=== PATIENT | male | born 1990 | race Caucasian/White ===

== ENCOUNTER 2018-04-12 15:01 | Emergency (ER) | payer OTHER ==
[2018-04-12 16:13] LABS: KETONE, URINE AUTO RFX NEGATIVE (NEGATIVE); LEUKOCYTE ESTERASE UR AUTO RFX NEGATIVE (NEGATIVE); MUCUS, URINE RFX SMALL (NEGATIVE); NITRITE, URINE AUTO RFX NEGATIVE (NEGATIVE); RBC, URINE AUTO RFX 0 /HPF (0-3); SPECIFIC GRAVITY UR AUTO RFX 1.024 (1.002-1.035); SQUAM EPITHELIAL CELL UR AURFX 0 /HPF (0-6); WBC, URINE AUTO RFX 0 /HPF (0-3)
[2018-04-12 17:54] LABS: CHLAMYDIA DNA AMPLIFICATION NEGATIVE (NEGATIVE); GC DNA AMPLIFICATION NEGATIVE (NEGATIVE)
== END 2018-04-12 17:34 | disposition home or self-care (01) ==
LOC: M ED 15:01
DX: I86.1 Scrotal varices (principal); N50.3 Cyst of epididymis
CPT/HCPCS: 76870

== ENCOUNTER → 2019-05-10 | Outpatient (CLI) | payer OTHER ==
[~2019-05-10] MED LIST: ISOVUE-370 76% 100ML VIAL (Q9967) As Ordered ONE; NAPR-885 PO
--- NOTE | 2019-05-11 12:27 | REP ---
Thoracic outlet syndrome CT angiography: The IV contrast bolus is split in two. Injection is performed into the right upper extremity veins, as the more symptomatic side is on the left. Scanning is initially performed with the right arm over head and left arm at side during the arterial phase of enhancement and repeated after 90 seconds during the venous phase of enhancement. Following this scanning is repeated with the left arm over head and right arm at side during the arterial phase of enhancement and repeated during the venous phase of enhancement. Axial images are acquired and sagittal and coronal reformats are performed. With the left arm over head, there is compression of the left subclavian vein by the left clavicle. There is is no left subclavian vein impression compression with the left arm at side. There is no left subclavian artery compression with the arm over head or the arm at side. There is no compression of the right subclavian artery or right subclavian vein with the arm at side or arm over head. Images on the right are somewhat compromised by beam-hardening artifact from the dense contrast in the right upper extremity veins during contrast infusion. Electronically Signed by William Sevilla MD 05/11/2019 12:18 P
== END ==
LOC: M RAD 17:21
PROVIDERS: ATTEND General Practice
DX: G54.0 Brachial plexus disorders (principal)
CPT/HCPCS: 71275; Q9967

== ENCOUNTER → 2024-02-27 | Outpatient (REF) ==
[~2024-02-27] MED LIST changes: -ISOVUE-370 76% 100ML VIAL (Q9967) As Ordered ONE
== END ==
LOC: M PLAIMG 09:56
PROVIDERS: ATTEND Internal Medicine
DX: R52 Pain, unspecified (principal)